=== PATIENT | male | born 1965 | race Caucasian/White ===

== ENCOUNTER 2025-04-02 11:05 | Emergency (ER) | payer BC, SELFPAY ==
[2025-04-02 11:08] VITALS: BP 151/83
--- NOTE | 2025-04-02 11:54 | ED.GENMED ---
History of Present Illness
General
Chief Complaint: BURN-MINOR
Source: patient
Exam Limitations: none
Time Seen by Provider: 04/02/25 11:50
History of Present Illness
History of Present Illness:
See MDM
Past History
Past History
ED Past Medical History: None
ED Past Surgical History: None
Social History
Tobacco: Non-smoker
Alcohol: None
Phy Exam
Physical Exam
Physical Exam:
See MDM
Course
Vital Signs
Initial and Last Documented VS:
Initial Vital Signs
Temp Pulse Resp BP
97.8 F 87 15 151/83
04/02/25 11:08 04/02/25 11:08 04/02/25 11:08 04/02/25 11:08
Last Documented Vital Signs
Temp Pulse Resp BP
97.8 F 87 15 151/83
04/02/25 11:08 04/02/25 11:08 04/02/25 11:08 04/02/25 11:08
MDM/Problems Addressed
Differential Diagnosis Includes:
Note:
CHIEF COMPLAINT(S)
Burn to the left wrist.
HISTORY OF PRESENT ILLNESS
The patient is a 60-year-old male presenting with a burn on the palmar aspect of his left wrist. The injury occurred when beebe grease fell onto the wrist, just prior to arrival at the emergency department. The patient expressed that his tetanus
vaccination is up to date.
PHYSICAL EXAM
General: Alert, no acute distress.
Skin: Second agree burn to left wrist encompassing < 1% of total body surface area
Head: Normocephalic, atraumatic
Neck: Appears supple, trachea midline.
Eyes, Ears, Nose, Mouth, and Throat: Moist mucous membranes
Cardiovascular: No signs of cyanosis
Respiratory: Respirations are non-labored.
Abdomen: Non-distended
Musculoskeletal: No deformities
Neurological: No focal neurological deficit observed.
Psychiatric: Cooperative, appropriate mood and affect.
SOCIAL DETERMINANTS OF HEALTH
The patients mention of insurance implies possible concerns related to coverage or access to care.
DIFFERENTIAL DIAGNOSIS
The Differential Diagnosis includes, in no particular order and is not limited to:
- Second-degree burn
- Chemical burn
- Friction burn
- Allergic reaction
- Cellulitis
- Contact dermatitis
- Erythema multiforme
- Skin infection
- Thermal injury
- Scald injury
SUMMARY OF ENCOUNTER
The patient was seen in the emergency department for a burn to the left wrist caused by hot beebe grease. The examination revealed a second-degree burn, with distal extremities being neurovascularly intact. The patients tetanus vaccination status is
up to date.
MEDICATION RECONCILIATION
The patient may require pain medication, which will be determined after further examination and discussion.
MEDICAL DECISION MAKING
- Complexity of Data Reviewed: Chronic conditions affecting care
- Data:
Category 1:
- None discussed.
Category 2:
- None discussed.
Category 3:
- None discussed.
DIAGNOSIS
- Second-degree burn of the left wrist (ICD-10: T23.202A)
SUMMARY OF ENCOUNTER
The patient, a 60-year-old male, was seen in the emergency department with a second-degree burn on the palmar aspect of his left wrist caused by hot beebe grease. The affected area encompasses less than 1% of the total body surface area. His tetanus
vaccination is up to date. We discussed local wound care, including applying antibiotic cream and avoiding unroofing the area if it begins to blister. After addressing his concerns and providing instructions, the burn was treated with an antibiotic
cream and properly dressed before discharge.
DISPOSITION
Discharge.
ASSESSMENT
Second-degree burn of the left wrist.
PATIENT EDUCATION AND COUNSELING
The patient was educated on local wound care, emphasizing the importance of applying antibiotic cream and refraining from unroofing blisters that may form. The patient expressed comfort and understanding of the treatment plan.
FOLLOW-UP INSTRUCTIONS
The patient was advised to monitor the burn for any signs of infection, such as increased redness, swelling, or pus, and to follow up with his primary care physician if any concerns arise.
MEDICATION RECONCILIATION
Antibiotic cream was applied to the burn before discharge.
MEDICAL DECISION MAKING
- Number and Complexity of Problems Addressed: Chronic conditions affecting care. Differential Diagnosis includes second-degree burn, chemical burn, friction burn, allergic reaction, cellulitis, contact dermatitis, erythema multiforme, skin
infection, thermal injury, and scald injury.
- Risk: Care significantly affected by social determinants of health, such as insurance coverage concerns. Prescription medication was prescribed. Consideration of Admission/Observation: Escalation of care including admission/observation was
considered given the complexity and risk of the patients presenting complaint. However, the patient is safe for outpatient management with close follow-up, given the work-up was reassuring and the patient agreed with discharge and was reliable for
follow-up.
DIAGNOSIS
Second-degree burn of the left wrist (ICD-10: T23.202A).
*Pulse Oximetry
Patient hypoxic: no
*Critical Care Note
Total Time (30-74mins, 75-104mins- exclusive of procedures): Not Applicable
ED Attending Note
-
Portions of this chart may have been created with voice recognition software.� Occasional wrong word or��sound alike� substitutions may have occurred due to the inherent limitations of voice recognition software.
Discharge Plan
Departure
Patient Disposition: Home (Routine Discharge)
Date of Disposition: 04/02/25
Time of Disposition: 12:38
Patient with high blood pressure during this ER visit?: Yes
Discharge Problem:
Burn of skin
Instructions: Skin Fish (DC), BLOOD PRESSURE
Referrals:
Kyle Smith DO [Family Provider, Family Practice]
Activity Restrictions/Additional Instructions:
Watch for signs of infection: fever over 100.5', increasing pain, red streaks around wound, swelling, or increasing drainage of pus. If any of these happen, return to ED promptly. Continue to keep the area moist with antibiotic cream for the next
week or so.
Interventions
Interventions:
*General Assessment Last Done: 04/02/25 11:08
*Neglect/Abuse Screening Last Done: 04/02/25 11:08
*ED COVID-19 Vaccine History Last Done: 04/02/25 11:08
*ED Influenza Vaccine History Last Done: 04/02/25 11:08
*Risk Screen - Suicide (C-SSRS) Last Done: 04/02/25 11:08
Discharge Date and Time
Print Language: SYRIAC
--- NOTE | 2025-04-02 12:53 | EDRN ---
Discharge instructions given to patient by .
== END 2025-04-02 12:45 | disposition home or self-care (01) ==
LOC: EMR 11:05
PROVIDERS: EMERGENCY PHYSICIAN Student in an Organized Health Care Education/Training Program; FAMILY PHYSICIAN Family Medicine
DX: T23.272A Burn of second degree of left wrist, initial encounter (principal); X10.2XXA Contact with fats and cooking oils, initial encounter
CPT/HCPCS: 99282; 16020